=== PATIENT | male | born 1955 | race African-American/Black ===

== ENCOUNTER 2017-09-24 15:46 | Emergency (ER) | payer OTHER ==
[~2017-09-24] VITALS: Ht 177.8 cm; Wt 95.3 kg
[~2017-09-24 15:46] MED LIST: CIPRO500 M1 PO; FLAGYL500 MG PO; NORCO 5-325 TA1 EACH PO
--- NOTE | 2017-09-24 17:19 | ED GI/GU/ABDOMINAL COMPLAINT ---
History of Present Illness General Chief Complaint: Abdominal Pain/Flank Pain Stated Complaint: ABD PAIN Source: patient, old records Exam Limitations: no limitations Vital Signs & Intake/Output Vital Signs & Intake/Output Vital Signs Date Time Temp Pulse Resp B/P B/P Pulse O2 O2 Flow FiO2 Mean Ox Delivery Rate 09/24 1839 99.4 86 12 141/76 99 Room Air 09/24 1547 97.1 78 18 131/86 98 Room Air Allergies Coded Allergies: No Known Allergies (09/21/17) Reconcile Medications Ciprofloxacin HCl (Cipro) 500 MG TABLET 1 TAB PO BID diverticulitis Hydrocodone/Acetaminophen ([place] 5-325 Tablet) 5 MG-325 MG TABLET 1-2 TAB PO Q4-6 PRN PRN abdominal pain Metronidazole (Flagyl) 500 MG TABLET 1 TAB PO Q6 DIVERTICULITIS Triage Note: PT STATES THAT HE WAS SEEN HERE SUNDAY AND DIAGNOSED WITH DIVERTICULOSIS , STARTED ON ABT,STATES THAT HE STARTED TO FEEL BETTER BUT LAST PM L SIDE ABD PAIN INCREASED HAS NOT HAD BM SINCE SUNDAY, DENIES N/V/D. Triage Nurses Notes Reviewed? yes Onset: Gradual Duration: day(s): Timing: recent history Quality/Severity: cramping, moderate, sharpness, severe Severity Numbers: 5 Location: left lower quadrant Radiation: RLQ HPI: 62yo male presents to emergency department complaining of constipation and persistent abdominal pain. Patient was seen and evaluated here 2 days ago and diagnosed with diverticulitis, he was started on antibiotics and Vicodin at that time. Patient reports last bowel movement was 09/20/17. Despite use of antibiotics patient has had persistent left lower quadrant pain and has not been able to have a bowel movement. Pain is described as fluctuating, cramping and sharp, ranging from 5-10/10. Patient does not feel that pain has worsened. He is also complaining of intermittent fevers and chills. No nausea and vomiting since 09/20/17. Patient did take [id number] laxative 2 days ago however he did not at the bowel movement. (Park OLIVARES,Mercy Cabrera) Past History Travel History Traveled to [place] past 21 day No Medical History Any Pertinent Medical History? see below for history Neurological: NONE EENT: NONE Cardiovascular: NONE Respiratory: NONE Gastrointestinal: diverticulitis Hepatic: NONE Renal: NONE Musculoskeletal: NONE Psychiatric: NONE Endocrine: NONE Blood Disorders: NONE Cancer(s): NONE Surgical History Surgical History: non-contributory Psychosocial History What is your primary language Icelandic Tobacco Use: Never used ETOH Use: denies use Illicit Drug Use: denies illicit drug use Family History Hx Contributory? No (Mercy Waterman) Review of Systems Review of Systems Constitutional: Reports: see HPI. EENTM: Reports: no symptoms. Respiratory: Reports: no symptoms. Cardiovascular: Reports: no symptoms. GI: Reports: see HPI. Genitourinary: Reports: no symptoms. Musculoskeletal: Reports: no symptoms. Skin: Reports: no symptoms. Neurological/Psychological: Reports: no symptoms. Hematologic/Endocrine: Reports: no symptoms. Immunologic/Allergic: Reports: no symptoms. All Other Systems: Reviewed and Negative (Mercy Waterman) Physical Exam Physical Exam General Appearance: well developed/nourished, no apparent distress, alert, awake Head: atraumatic, normal appearance Eyes: Bilateral: normal appearance. Ears, Nose, Throat, Mouth: hearing grossly normal Neck: normal inspection, supple, full range of motion Respiratory: normal breath sounds, no respiratory distress, lungs clear Cardiovascular: regular rate/rhythm Gastrointestinal: normal bowel sounds, soft, no organomegaly, RLQ and LLQ tenderness with gaurding, no rebound tenderness Back: normal inspection, normal range of motion Extremities: normal range of motion Neurologic/Psych: awake, alert, oriented x 3 Skin: intact, normal color, warm/dry Core Measures ACS in differential dx? No Sepsis Present: No Sepsis Focused Exam Completed? No (Mercy Waterman) Progress Differential Diagnosis: appendicitis, bowel obstruction, diverticulitis, perforated viscous, SBO Plan of Care: Laboratory Tests 09/24/17 1744: Lactic Acid Cancelled, CBC w Diff Cancelled, WBC Cancelled, RBC Cancelled, Hgb Cancelled, Hct Cancelled, MCV Cancelled, MCH Cancelled, RDW Cancelled, Plt Count Cancelled, MPV Cancelled, PUBS MCHC Cancelled Abdominal x-ray shows very mild stool present, no signs of free air or bowel perforation. Patient had CT scan 2 days ago showing diverticulitis without complication. He is taking antibiotics as prescribed. Patient reports abdominal pain is not worse today than on previous visit. Attempted to collect blood work however patient is a difficult stick and attemp was unsuccessful. Risks vs benefit discussed with patient and he elects to go home prior to obtaining blood work. Patient states he feels okay, will begin Colace as directed for stool softener. He was given strict return precautions with worsening abdominal pain, he was educated on the risks of diverticulitis complications and formed of the proper diverticulitis diet. Patient no acute distress, sitting comfortably in stretcher, vital signs are stable. The patient agrees with the plan of care. The patient was discussed with Dr. Edwards who agrees with this plan. Diagnostic Imaging: Viewed by Me: Radiology Read. Discussed w/RAD: Radiology Read. Radiology Impression: PATIENT: CARLOS ALBERTO BAKER PRESENT AGE: 62 PATIENT ACCOUNT NO: [id number] : 56 LOCATION: [facility] ORDERING PHYSICIAN: Mercy OLIVARES SERVICE DATE: 09/24/17 EXAM TYPE: RAD - [id number] VIEWS EXAMINATION: XR ABDOMEN MULTIPLE VIEWS CLINICAL INDICATION: Constipation x4 days. Persistent pain. COMPARISON: None TECHNIQUE: 2 views of the abdomen. FINDINGS: There is no organomegaly. Scattered gas is seen throughout the colon with nonspecific small air-fluid levels left upper quadrant. There is minimal stool in the right colon. No free air is suspected. No gross bony abnormality. IMPRESSION: Unremarkable abdomen exam. Minimal stool in the colon. DICTATED BY: Curt Valdovinos MD DATE/TIME DICTATED:09/24/171812 BODY ARTIST:GIULIA DATE/TIME TRANSCRIBED:09/24/171812 CONFIDENTIAL, DO NOT COPY WITHOUT APPROPRIATE AUTHORIZATION. <Electronically signed in Other Vendor System> SIGNED BY: Curt Valdovinos MD 09/24/17 182 Initial ED EKG: none (Park OLIVARES,Mercy Cabrera) Departure Departure Disposition: HOME OR SELF CARE Condition: Stable Clinical Impression Primary Impression: Diverticulitis Secondary Impressions: Constipation Referrals: Patient Has No Primary Care Dr (PCP/Family) Additional Instructions: Continue to take antibiotics as prescribed. Discontinue Vicodin if possible as this medication is constipating. Take Tylenol or ibuprofen as needed for your pain. Begin Colace stool softener, take this medication twice a day until you begin having regular bowel movements. Maintain a high-fiber diet. If you develop worsening abdominal pain or other concerns please return to the emergency department. Please note that there might be incidental findings in your evaluation that are unrelated to the current emergency department visit. Please notify your primary care doctor about this emergency department visit in order to obtain and review all of the testing performed so that these incidental findings can be monitored as needed. If you had an x-ray performed, please understand that some fractures may not be seen on the initial set of x-rays. If your symptoms persist you might need a repeat set of x-rays to check for such a fracture. If you had a laceration evaluated, please understand that foreign bodies such as glass or wood may not be visible to the naked eye or on plain x-rays. If the wound becomes red, swollen, increasingly more painful or if there is any drainage from the wound, please have it reevaluated by a physician for the possibility of a retained foreign body. If you're unable to follow up as outlined in the discharge instructions please return to the emergency department. Thank you for choosing the [facility] Emergency Department for your care. It was a pleasure to serve you today. Departure Forms: Customer Survey General Discharge Information (Park OLIVARES,Mercy Cabrera) PA/DIGITAL STRATEGIST SENIOR MANAGER Co-Sign Statement Statement: ED Attending supervision documentation- [] I saw and evaluated the patient. I have also reviewed all the pertinent lab results and diagnostic results. I agree with the findings and the plan of care as documented in the PA's/DIGITAL STRATEGIST SENIOR MANAGER's documentation. [X] I have reviewed the ED Record and agree with the PA's/DIGITAL STRATEGIST SENIOR MANAGER's documentation. [] Additions or exceptions (if any) to the PAs/DIGITAL STRATEGIST SENIOR MANAGER's note and plan are summarized below: [] (Grace MCCABE,Yung Oro)
--- NOTE | 2017-09-24 18:20 | RADIOLOGY REPORT ---
EXAMINATION: XR ABDOMEN MULTIPLE VIEWS CLINICAL INDICATION: Constipation x4 days. Persistent pain. COMPARISON: None TECHNIQUE: 2 views of the abdomen. FINDINGS: There is no organomegaly. Scattered gas is seen throughout the colon with nonspecific small air-fluid levels left upper quadrant. There is minimal stool in the right colon. No free air is suspected. No gross bony abnormality. IMPRESSION: Unremarkable abdomen exam. Minimal stool in the colon.
[2017-09-24 19:07] VITALS: BP 137/74
== END 2017-09-24 19:11 ==
LOC: ERH 15:46
DX: K57.92 Diverticulitis of intestine, part unspecified, without perforation or abscess without bleeding (principal)
CPT/HCPCS: 74021